=== PATIENT | male | born 1955 | race African-American/Black ===

== ENCOUNTER → 2018-12-04 | Outpatient (CLI) | payer MEDICARE ==
--- NOTE | 2018-12-04 13:55 | Diagnostic Imaging Report ---
EXAM: US RENAL RETROPERITONEAL COMP DATE: 12/04/2018 10:52 AM INDICATION: Chronic kidney disease COMPARISON: None TECHNIQUE: Transverse and longitudinal jamison scale and color doppler sonographic images of the upper abdomen were obtained. FINDINGS: RIGHT KIDNEY: 10.0 cm Echogenicity: Normal Collecting System: No hydronephrosis Stones: None Cyst/Mass: None LEFT KIDNEY: 10.1 cm Echogenicity: Normal Collecting System: No hydronephrosis Stones: None Cyst/Mass: None FREE FLUID: None BLADDER: Normal IMPRESSION: Unremarkable renal ultrasound Signed by: Dr. Florencio Abbott MD on 12/04/2018 1:51 PM
== END ==
LOC: US 10:43
PROVIDERS: ATTEND Urology
DX: N18.9 Chronic kidney disease, unspecified (principal)
CPT/HCPCS: 76770